=== PATIENT | female | born 1980 | race Caucasian/White ===

== ENCOUNTER 2016-11-03 09:24 | Emergency (ER) | payer OTHER ==
[~2016-11-03] VITALS: Ht 157.5 cm; Wt 63.0 kg
[2016-11-03 09:31] VITALS: Ht 157.5 cm; Wt 63.0 kg
--- NOTE | 2016-11-03 10:52 | ERD ---
ER Documentation Chief Complaint Date/Time DATE: 11/03/16 TIME: 10:47 Chief Complaint Abd pain from hernia x 3 hours HPI Patient is 36-year-old female brought in by paramedics with a history of umbilical hernia (3 years) who presents to the emergency department with pain from her hernia site. Patient states that the pain occurred approximately 3 hours ago. She currently has no pain. Patient states that there was bulging and "blue discoloration" to her umbilical hernia when the pain started. With massage, patient was able to reduce hernia. The pain lasted approximately 2 hours. Patient did not take any pain medication. Patient states the her hernia is reduced and has no discoloration any longer. Patient denies any fever, chills , nausea, vomiting, decreased bowel function, loss of consciousness. Patient states that the hernia often "pops out" with coughing, sneezing, exertional movements. Patient states that she has to massage umbilical area for hernia to reduce often. ROS All systems reviewed and are negative except as per history of present illness. Allergies Allergies: Coded Allergies: No Known Allergy (Unverified , 11/03/16) PMhx/Soc Medical and Surgical Hx: pt denies Surgical Hx Hx Miscellaneous Medical Probl: Yes (umbilical hernia) Hx Alcohol Use: No Hx Substance Use: No Hx Tobacco Use: No FmHx Family History: No diabetes Physical Exam Vitals Vital Signs Date Time Temp Pulse Resp B/P Pulse Ox O2 Delivery O2 Flow Rate FiO2 11/03/16 09:31 98.4 75 18 101/60 98 Physical Exam GENERAL: Well-developed, well-nourished female. Appears in no acute distress. HEAD: Normocephalic, atraumatic. No deformities or ecchymosis. EYE: Pupils equal, round, and reactive to light. EOMs intact. No conjunctival erythema. No eye discharge. ENT: Moist mucous membranes. No uvula deviation. No kissing tonsils. NECK: Supple. No meningismus. Normal ROM of the neck. LUNG: Clear to auscultation bilaterally. No rhonchi, wheezing, rales or coarse breath sounds. HEART: Regular rate and rhythm. No murmurs, rubs or gallops. ABDOMEN: Reducible umbilical hernia, no discoloration, no swelling, non-tender to palpation. Hernia sac soft, non-erythematous. Abdomen is soft, nontender, and nondistended. Positive bowel sounds in all four quadrants. No rebound tenderness, no guarding. (-) McBurney's point tenderness. No CVA tenderness. BACK: No midline tenderness. EXTREMITES: Equal pulses bilaterally. No peripheral clubbing, cyanosis or edema. No unilateral leg swelling. NEUROLOGIC: Alert and oriented to person, place and time. Moving all four extremities. 5/5 strength in all extremities. Normal speech. Steady gait. SKIN: Normal color. Warm and dry. No rashes or lesions. Procedures/MDM MEDICAL DECISION MAKING: This is a 36-year-old female who presents with pain 3 hours ago from umbilical hernia site. Pain is now improved. Vital signs were reviewed. Patient is afebrile. Abdominal exam revealed reducible umbilical hernia. No discoloration or firmness noted. At this time, patient's presentation is most consistent with reducible umbilical hernia. I have a much lower clinical concern for strangulated hernia or incarcerated hernia. Low suspicion for appendicitis, lipoma, abdominal mass. DISCHARGE: At this time, patient is stable for discharge and outpatient management. I have instructed the patient to follow-up with his/her primary care physician in 1-2 days. Patient will need to see a general surgery for further management of her symptoms including surgical mesh repair given history of recurrence. Referral information provided. I have instructed the patient to promptly return to the ER at any time for any new or worsening symptoms including increased pain, nausea, vomiting, diarrhea, fever, weakness or LOC. The patient and/or family expressed understanding of and agreement with this plan. All questions were answered. Home care instructions were provided. I discussed the patient's case with my supervising physician, Dr. Dodd, who saw the patient with me and is agreement with the patient's diagnosis and plan. Departure Diagnosis: Primary Impression: Abdominal hernia Hernia type: unspecified Obstruction and gangrene presence: without obstruction or gangrene Recurrence: recurrent Qualified Code: K45.8 - Recurrent abdominal hernia without obstruction or gangrene, unspecified hernia type Condition: Stable Patient Instructions: Hernia (Inguinal, Ventral, Umbilical) Referrals: ROGERS DALEY MD, SAMUEL MD KOSARI, KAMBIZ M.D. [facility] YOU HAVE RECEIVED A MEDICAL SCREENING EXAM AND THE RESULTS INDICATE THAT YOU DO NOT HAVE A CONDITION THAT REQUIRES URGENT TREATMENT IN THE EMERGENCY DEPARTMENT. FURTHER EVALUATION AND TREATMENT OF YOUR CONDITION CAN WAIT UNTIL YOU ARE SEEN IN YOUR DOCTORS OFFICE WITHIN THE NEXT 1-2 DAYS. IT IS YOUR RESPONSIBILITY TO MAKE AN APPOINTMENT FOR FOLOW-UP CARE. IF YOU HAVE A PRIMARY DOCTOR --you should call your primary doctor and schedule an appointment IF YOU DO NOT HAVE A PRIMARY DOCTOR YOU CAN CALL OUR PHYSICIAN REFERRAL HOTLINE AT IF YOU CAN NOT AFFORD TO SEE A PHYSICIAN YOU CAN CHOSE FROM THE FOLLOWING [facility] [address] [facility] [address] [facility] [address] [facility] [address] [facility] [address] [facility] [address] [facility] YOU HAVE RECEIVED A MEDICAL SCREENING EXAM AND THE RESULTS INDICATE THAT YOU DO NOT HAVE A CONDITION THAT REQUIRES URGENT TREATMENT IN THE EMERGENCY DEPARTMENT. FURTHER EVALUATION AND TREATMENT OF YOUR CONDITION CAN WAIT UNTIL YOU ARE SEEN IN YOUR DOCTORS OFFICE WITHIN THE NEXT 1-2 DAYS. IT IS YOUR RESPONSIBILITY TO MAKE AN APPOINTMENT FOR FOLOW-UP CARE. IF YOU HAVE A PRIMARY DOCTOR --you should call your primary doctor and schedule and appointment IF YOU DO NOT HAVE A PRIMARY DOCTOR YOU CAN CALL OUR PHYSICIAN REFERRAL HOTLINE AT . IF YOU CAN NOT AFFORD TO SEE A PHYSICIAN YOU CAN CHOSE FROM THE FOLLOWING [facility]: [facility] [address] [place] [address] [facility] [address] [place] [address] [facility] [address] [place] [address] Additional Instructions: Call your primary care doctor TOMORROW for an appointment during the next 1-2 days.See the doctor sooner or return here if your condition worsens before your appointment time. Hernia is currently reduced. No signs of blood entrapment at this time. Patient will need to follow up with general surgery for surgical repair of ongoing hernia. ISIDRA SORIA PA-C Nov 03, 2016 10:52 ISIDRA SORIA PA-C Nov 03, 2016 10:52
== END 2016-11-03 10:55 | disposition home or self-care (01) ==
LOC: FTE 09:24
DX: K45.8 Other specified abdominal hernia without obstruction or gangrene (principal)
CPT/HCPCS: 99282

== ENCOUNTER 2018-04-11 14:02 | Emergency (ER) | END 2018-04-11 15:38 | disposition home or self-care (01) ==